=== PATIENT | male | born 1985 | race Caucasian/White ===

== ENCOUNTER 2022-02-05 08:41 | Observation (INO) ==
[2022-02-05] MEDS ORDERED: IOPAMIDOL 100 ML BOTTLE IV ONE (08:42)
[2022-02-05] MEDS ORDERED: 0.9 % SODIUM CHLORIDE 1,000 ML IV ONE ×2 (08:45→08:54)
[2022-02-05 08:53] LABS: POC Calcium, Ionized 1.11 (1.16-1.32); POC Creatinine 1.3 (0.6-1.2); POC Potassium 4.1 (3.3-5.1)
[2022-02-05] MEDS ORDERED: ONDANSETRON 4 MG/2 ML VIAL IV ONE (08:54)
[2022-02-05] MEDS ORDERED: HYDROmorphone 0.5 MG/0.5 ML SYRINGE IV ONE ×3 (08:54→11:41)
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
[2022-02-05 09:39] LABS: Basophils # (Auto) 0.06 K/mcL (0.00-0.30); Basophils % (Auto) 0.4 % (0.0-2.0); Eosinophils # (Auto) 0.04 K/mcL (0.00-0.70); Eosinophils % (Auto) 0.2 % (0.0-7.0); Hematocrit 49.6 % (40.1-51.0); Hemoglobin 16.9 g/dL (13.7-17.5); Lymphocytes # (Auto) 1.56 K/mcL (1.50-4.80); Lymphocytes % (Auto) 9.1 % (15.5-49.0); Mean Cell Volume 92.9 fL (80.0-100.0); Mean Corpuscular HGB Conc 34.1 g/dL (31.0-36.0); Mean Platelet Volume 9.9 fL (8.8-12.5); Monocytes % (Auto) 5.3 % (1.0-12.0); Neutrophils % (Auto) 84.6 % (38.0-78.0); Platelet Count 251 K/mcL (140-440); RBC 5.34 M/mcL (4.63-6.08); Red Cell Distribution Width 11.9 % (11.5-14.5); WBC 17.1 K/mcL (4.5-11.0)
[2022-02-05 09:47] LABS: ALT/SGPT 20 U/L (<40); AST/SGOT 22 U/L (<40); Albumin 5.5 gm/dL (3.2-5.2); Alkaline Phosphatase 68 U/L (39-117); Amylase 53 U/L (28-100); Bilirubin,Direct 0.2 mg/dL (<0.3); Bilirubin,Total 0.8 mg/dL (0.1-1.0); Globulin 2.8 gm/dL (2.2-3.7)
--- NOTE | 2022-02-05 09:55 | XRay Report ---
CLINICAL INFORMATION: Chest pain COMPARISON: 03/25/2018 TECHNIQUE: Portable FINDINGS: The heart size, mediastinum and pulmonary vessels are unremarkable. The lungs are clear. There are no effusions. The bones and soft tissues are within normal limits. IMPRESSION: Normal chest. Interpreted and Authenticated by: Josue Sue 02/05/22
--- NOTE | 2022-02-05 10:11 | Cat Scan Report ---
CLINICAL INFORMATION: Left lower quadrant pain. History of stones COMPARISON: Abdomen and pelvic CT 04/25/2019 TECHNIQUE: Following enteric contrast, 80 cc of Isovue-370 were injected intravenously, and 60 seconds later, 0.625 mm helical slices were obtained from the mid heart through the subtrochanteric regions. Following reconstruction, 2.5 mm sagittal, coronal and axial reformatted images were processed and reviewed at bone, lung and soft tissue windows. Five minutes later, 0.625 mm helical slices were obtained from the mid heart through the kidneys and viewed at soft tissue windows.The exam was performed using radiation dose optimization techniques including, but not limited to, automated exposure control, adjustment of the mA and/or kV according to patient size and use of iterative reconstruction technique. FINDINGS: The lung bases are clear. No effusions. The visualized heart is grossly normal. Abdominal images show mild stable fatty change within the liver. No focal hepatic lesions. The gallbladder and bile ducts, adrenal glands, spleen, pancreas and aorta, including aortic branches, are normal in size, configuration and attenuation without focal lesion. There is no free air, free fluid or adenopathy. Both kidneys are normal and symmetric in size, position, configuration and attenuation: The right is 11.3 cm in length and the left is 11.7 cm in length. There is a 3 mm stone in the distal left ureter, at the UVJ, resulting in moderate left hydroureter/hydronephrosis. A 3 mm nonobstructing stone is seen within an inferior calyx of the right kidney. Pelvic images show normal urinary bladder, prostate and seminal vesicles. The stomach, small bowel, inferior pericecal appendix and large bowel are grossly normal. Bone windows show no osseous abnormality IMPRESSION: 1. 3 mm stone in the distal left ureter resulting in moderate left hydroureter/hydronephrosis. 2. 3 mm nonobstructing stone inferior calyx right kidney. 3. Mild fatty change within the liver that stable Interpreted and Authenticated by: Josue Sue 02/05/22
[2022-02-05] MEDS ORDERED: LEVOFLOXACIN 750 MG/150 ML BAG IV ONE (10:26)
[2022-02-05 11:28] LABS: Appearance,Urine Clear (Clear); Bilirubin,Urine Negative (Negative); Color,Urine Yellow; Culture Indicated,Urine No; Glucose,Urine (UA) Negative (Negative); Ketones,Urine Negative (Negative); Leukocyte Esterase,Urine Negative /uL (Negative); Mucus,Urine MOD /hpf; Nitrate,Urine Negative (Negative); PH,Urine 7.5 (5.0-9.0); Urine Blood Large ery/mcL (Negative); Urine Hyaline Cast 1 /lph (0-2); Urine RBC 146 /hpf (0-3); Urine Squamous Epithelial Cell < 1 /hpf (0-4); Urine WBC 2 /hpf (0-4); Urobilinogen,Urine Normal
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
[2022-02-05] MEDS ORDERED: ONDANSETRON 4 MG/2 ML VIAL IV PRN (12:34)
[2022-02-05] MEDS ORDERED: ACETAMINOPHEN 325 MG TABLET PO PRN (12:34)
[2022-02-05] MEDS ORDERED: KETOROLAC 30 MG/ML VIAL IV PRN (12:34)
[2022-02-05] MEDS ORDERED: PROMETHAZINE 25 MG/ML VIAL IV PRN (12:34)
[2022-02-05] MEDS ORDERED: IPRATROPIUM/ALBUTEROL 3 ML AMPUL.NEB NEB PRN (12:34)
[2022-02-05] MEDS ORDERED: hydrALAZINE 20 MG/ML VIAL IV PRN (12:34)
[2022-02-05] MEDS: 0.9 % SODIUM CHLORIDE 1,000 ML IV SCH ×3 (13:05→23:14)
[2022-02-05] MEDS: HYDROmorphone 0.5 MG/0.5 ML SYRINGE IV PRN ×4 (13:06→20:32)
[2022-02-05] MEDS ORDERED: ACETAMINOPHEN 500 MG TABLET PO PRN (13:24)
[2022-02-05] MEDS ORDERED: HYDROcodone/APAP (PP) 5/325MG TABLET (#4) PO PRN (13:24)
[2022-02-05] MEDS ORDERED: PSEUDOEPHEDRINE 30 MG TABLET PO PRN (13:28)
[2022-02-05] MEDS: 0.9 % SODIUM CHLORIDE 10 ML SYRINGE IV SCH ×2 (15:14→20:54)
[2022-02-05] MEDS: HYDROcodone/APAP 5/325MG TABLET PO PRN ×2 (16:08→21:04)
[2022-02-05] MEDS: DOCUSATE SODIUM 100 MG CAPSULE PO SCH (20:53)
[2022-02-05] MEDS: SENNOSIDES 1 TABLET PO SCH (20:54)
[2022-02-05] MEDS: LOSARTAN 50 MG TABLET PO SCH (20:54)
[2022-02-05] MEDS ORDERED: guaiFENesin/DEXTROMETHORPHAN ORAL SOL PO PRN (21:00)
[2022-02-05] MEDS: traZODone HCL 50 MG TABLET PO PRN (23:16)
[2022-02-06] MEDS: HYDROcodone/APAP 5/325MG TABLET PO PRN ×5 (02:59→20:46)
[2022-02-06] MEDS: 0.9 % SODIUM CHLORIDE 1,000 ML IV SCH ×6 (04:10→19:03)
[2022-02-06] MEDS: 0.9 % SODIUM CHLORIDE 10 ML SYRINGE IV SCH ×2 (06:29→13:39)
[2022-02-06 08:00] LABS: Blood Urea Nitrogen 13 mg/dL (6-20); Carbon Dioxide 20 mmol/L (22-30); Chloride 106 mmol/L (96-108); Glomerular Filtration Rate 108; Glucose 93 mg/dL (70-105)
[2022-02-06] MEDS: DOCUSATE SODIUM 100 MG CAPSULE PO SCH ×2 (08:40→20:46)
[2022-02-06] MEDS: ESCITALOPRAM 10 MG TABLET PO SCH (08:40)
[2022-02-06] MEDS: ENOXAPARIN 40 MG/0.4 ML SYRINGE SQ SCH (08:40)
[2022-02-06 08:42] LABS: Basophils # (Auto) 0.03 K/mcL (0.00-0.30); Basophils % (Auto) 0.6 % (0.0-2.0); Eosinophils # (Auto) 0.04 K/mcL (0.00-0.70); Eosinophils % (Auto) 0.7 % (0.0-7.0); Hematocrit 36.7 % (40.1-51.0); Hemoglobin 12.4 g/dL (13.7-17.5); Lymphocytes # (Auto) 1.85 K/mcL (1.50-4.80); Lymphocytes % (Auto) 34.1 % (15.5-49.0); Mean Cell Volume 93.4 fL (80.0-100.0); Mean Corpuscular HGB Conc 33.8 g/dL (31.0-36.0); Mean Platelet Volume 11.6 fL (8.8-12.5); Monocytes # (Auto) 0.56 K/mcL (0.10-0.90); Monocytes % (Auto) 10.3 % (1.0-12.0); Neutrophils % (Auto) 53.7 % (38.0-78.0); Platelet Count 96 K/mcL (140-440); RBC 3.93 M/mcL (4.63-6.08); Red Cell Distribution Width 11.9 % (11.5-14.5); WBC 5.4 K/mcL (4.5-11.0)
--- NOTE | 2022-02-06 14:14 | Internal Med Progress Note ---
SUBJECTIVE Subjective Patient information: Note initiated : 02/06/22 at 2:12 pm Service Date, if different from initiated Date: [] Patient: Cuong Haas a 36 y/o M admitted on 02/05/22 for severe left lower abd pain. Chief Complaint: [] Interval history: Mr. Haas is a 36 year old M history of bipolar disorder, essential hypertensions, chronic neck pain, presenting with 1 day history of acute onset left lower quadrant abdominal pain associate with nausea. No prior similar episode history. No prior history of kidney stone or ureteral stone. This morning at 5 AM he woke up with 10 out of 10, sharp, intermittent left lower quadrant abdominal pain. Denies back pain. He is also coming off nausea but denies any vomiting. He stated that he has been dehydrated recently. He is to drink a lot of water. Vital signs at ED presentation significant for mild tachycardia heart rate up to the 100s beats per minutes. CBC pending. Chemistry panel showing good kidney functions with GFR greater than 100. UA does not suggest the presence of urinary tract infections. CT of the abdomen pelvis showing 3 mm stone in the distal left ureter resulting in moderate left hydroureter and hydronephrosis. 3 mm nonobstructing stone inferior calyx right kidney. 02/06: Afebrile overnight. No major overnight events. Patient has not passed any ston e. Patient is coming of 3 out of 10 and sharp left lower quadrant abdominal pain intermittent. Denies any back pain. Denies any nausea or vomiting. Continue aggressive IV fluid infusions and narcotics/Toradol as needed for pain management. We will continue to attempt to catch 20 past kidney stones. If patient passed a stone or if continues to clinically improve, consider discharging home tomorrow. Constitutional Vitals: Vital Signs Temp Pulse Resp BP Pulse Ox O2 Del Method 37.1 C 75 14 113/75 99 02/06/22 12:00 02/06/22 12:00 02/06/22 12:00 02/06/22 12:02/06/22 12:02/06/22 12:00 Period Temp Pulse Resp BP Sys/[place] Pulse Ox O2 Del Method O2 Flow Rate Last 24 Hr 36.8 C-37.1 C 65-93 12-16 99-136/68-83 96-99 Room Air-Room Air Intake and Output 0902/06/22 02/06/22 05:59 13:59 21:59 Intake Total 2383 1945 Output Total 450 875 Balance 1933 1071 Weight 77.655 kg Patient Weight 02/07/22 05:59 Weight 77.655 kg Intake & Output: Intake & Output 02/06/22 02/06/22 02/06/22 05:59 13:59 21:59 Intake Total 2383 1945 Output Total 450 875 Balance 1934 1071 Weight 77.655 kg Intake: IV 1943 1945 Sodium Chloride 0.9% 1,000 ml @ 1943 1945 200 mls/hr IV .Q5H [facility] Rx#: [id number] Oral 440 Output: Void Amount 450 875 Other: Urine Appearance Clear Clear Urine Color Yellow Yellow Urine Odor Normal Head Head exam: Present atraumatic and normal inspection Eye Eye exam: Present normal appearance ENT ENT exam: Present mucous membranes moist, normal exam and normal external ear exam Neck Neck exam: Present normal inspection Respiratory Respiratory exam: Present normal respiratory exam Cardiovascular Cardiovascular exam: Present normal rate and rhythm GI/Abdominal GI/Abdominal exam: Present normal bowel sounds and tenderness Back Exam Back exam: Present normal inspection Neurological Exam Neurological exam: Present alert and oriented X3 Skin Skin exam: Present intact and warm OBJ DATA Labs CBC & Chem 7: 02/06/22 06:11 02/06/22 06:11 Labs: Abnormal Lab Results 02/06/22 02/06/22 02/05/22 06:11 06:11 09:01 WBC RBC 3.93 L Hgb 12.4 L Hct 36.7 L Plt Count 96 L Immature Gran % (Auto) 0.6 H Neut % (Auto) Lymph % (Auto) Immature Gran # Absolute Neutrophils Carbon Dioxide 20 L POC Creatinine POC Glucose Calcium 8.0 L POC WB Ioniz Calcium Albumin Urine Protein 30 mg/dl A Urine Occult Blood Large A Urine RBC 146 H Urine Mucus Mod A 02/05/22 02/05/22 02/05/22 08:57 08:54 08:50 WBC 17.1 H RBC Hgb Hct Plt Count Immature Gran % (Auto) Neut % (Auto) 84.6 H Lymph % (Auto) 9.1 L Immature Gran # 0.07 H Absolute Neutrophils 14.44 H Carbon Dioxide POC Creatinine 1.3 H POC Glucose 120 H Calcium POC WB Ioniz Calcium 1.11 L Albumin 5.5 H Urine Protein Urine Occult Blood Urine RBC Urine Mucus Meds: Medications Acetaminophen (Acetaminophen 325 Mg Tablet) 650 mg PO Q6HP PRN; Protocol PRN Reason: Per Pain Protocol/Fever > 101 Hydrocodone Bitart/Acetaminophen (Hydrocodone/Apap 5/325mg Tablet) 0 tab PO Q4HP PRN; Protocol PRN Reason: Per Pain Protocol Last Admin: 02/06/22 09:30 Dose: 2 tab Albuterol/Ipratropium (Ipratropium/Albuterol 3 Ml Ampul.Neb) 3 ml NEB Q4HRT PRN PRN Reason: Wheezing Docusate Sodium (Docusate Sodium 100 Mg Capsule) 100 mg PO BID [facility] Last Admin: 02/06/22 08:40 Dose: 100 mg Enoxaparin Sodium (Enoxaparin 40 Mg/0.4 Ml Syringe) 40 mg SQ DAILY [facility] Last Admin: 02/06/22 08:40 Dose: 40 mg Escitalopram Oxalate (Escitalopram 10 Mg Tablet) 10 mg PO QDAY [facility] Last Admin: 02/06/22 08:40 Dose: 10 mg Guaifenesin (Guaifenesin/Dextromethorphan Oral [place]) 10 ml PO HSP PRN PRN Reason: Cold Symptoms Hydralazine HCl (Hydralazine 20 Mg/Ml Vial) 10 mg IV Q4-6HP PRN PRN Reason: Hypertension Hydromorphone HCl (Hydromorphone 0.5 Mg/0.5 Ml Syringe) 0.5 mg IV Q2HP PRN; Protocol PRN Reason: Per Pain Protocol Last Admin: 02/05/22 20:32 Dose: 0.5 mg Sodium Chloride (Sodium Chloride 0.9%) 1,000 mls @ 200 mls/hr IV .Q5H [facility] Last Admin: 02/06/22 13:54 Dose: 200 mls/hr Ketorolac Tromethamine (Ketorolac 30 Mg/Ml Vial) 30 mg IV Q6HP PRN; Protocol PRN Reason: Per Pain Protocol Stop: 02/07/22 11:32 Last Admin: 02/05/22 13:05 Dose: 30 mg Losartan Potassium (Losartan 50 Mg Tablet) 50 mg PO HS [facility] Last Admin: 02/05/22 20:54 Dose: Not Given Ondansetron HCl (Ondansetron 4 Mg/2 Ml Vial) 4 mg IV Q6HP PRN PRN Reason: Nausea And Vomiting Promethazine HCl (Promethazine 25 Mg/Ml Vial) 12.5 mg IV Q6HP PRN PRN Reason: Nausea And Vomiting Pseudoephedrine HCl (Pseudoephedrine 30 Mg Tablet) 60 mg PO DAILYP PRN PRN Reason: COLD SYMPTOMS Senna (Sennosides 1 Tablet) 2 tab PO HS [facility] Last Admin: 02/05/22 20:54 Dose: Not Given Sodium Chloride (0.9 % Sodium Chloride 10 Ml Syringe) 10 ml IV Q8 [place] Last Admin: 02/06/22 13:39 Dose: Not Given Trazodone HCl (Trazodone Hcl 50 Mg Tablet) 25 mg PO HSP PRN PRN Reason: Insomnia Last Admin: 02/05/22 23:16 Dose: 25 mg A/P Assessment and plan (1) Essential hypertension: Status: Acute (2) Left ureteral stone: Status: Acute (3) Chronic neck and back pain: Status: Chronic (4) Bipolar disorder: Status: Acute Narrative A/P Narrative: Assessment and Plans: 1. Left ureteral stone with left hydroureter/hydronephrosis: With concurrent 3mm non obstructing right kidney stone Mostly likely will pass spontaneously given the size (3mm) Inpatient med surg NS@200cc/hr Tylenol Ketorolac [place] Dilaudid IV Zofran IV Phenergan IV Kidney stone strainer/filter 2. Essential HTN: Currently normotensive Losartan Hydralazine 10mg IV q4-6hr PRN SBP>=180 and/or DBP>=110mmHg 3. Bipolar disorder: Stable Continue antipsychotics GI ppx: not currently indicated DVT ppx: Lovenox Code status: Full Prognosis: stable Disposition: inpatient med surg Time Spent With Patient Time: Total time spent is greater than 50% in coordination of care (as documented) at patient's floor/unit and/or counseling patient: Total time spent with greater than 50% in coordination of care (as documented) at patient's floor/unit and/or counseling patient:: 25 - 35 minutes QUALITY VTE Deep Vein Thrombosis/Pulmonary Embolism Present on Admission: No
[2022-02-06] MEDS: SENNOSIDES 1 TABLET PO SCH (20:45)
[2022-02-06] MEDS: LOSARTAN 50 MG TABLET PO SCH (20:45)
[2022-02-06] MEDS: traZODone HCL 50 MG TABLET PO PRN (20:48)
[2022-02-07] MEDS: 0.9 % SODIUM CHLORIDE 1,000 ML IV SCH ×3 (00:04→09:27)
[2022-02-07] MEDS: 0.9 % SODIUM CHLORIDE 10 ML SYRINGE IV SCH ×2 (00:05→04:52)
[2022-02-07 07:41] LABS: Basophils # (Auto) 0.06 K/mcL (0.00-0.30); Eosinophils # (Auto) 0.06 K/mcL (0.00-0.70); Lymphocytes % (Auto) 33.8 % (15.5-49.0); Mean Corpuscular HGB Conc 34.2 g/dL (31.0-36.0); Mean Platelet Volume 10.2 fL (8.8-12.5); Monocytes # (Auto) 0.62 K/mcL (0.10-0.90); Monocytes % (Auto) 10.5 % (1.0-12.0); Neutrophils % (Auto) 53.5 % (38.0-78.0); Platelet Count 169 K/mcL (140-440); RBC 4.13 M/mcL (4.63-6.08); Red Cell Distribution Width 11.4 % (11.5-14.5); WBC 5.9 K/mcL (4.5-11.0)
[2022-02-07 08:30] LABS: Blood Urea Nitrogen 9 mg/dL (6-20); Calcium 8.4 mg/dL (8.6-10.4); Carbon Dioxide 26 mmol/L (22-30); Chloride 105 mmol/L (96-108); Glomerular Filtration Rate 108; Glucose 87 mg/dL (70-105)
[2022-02-07] MEDS: HYDROcodone/APAP 5/325MG TABLET PO PRN (08:56)
--- NOTE | 2022-02-07 09:04 | Discharge Summary ---
Discharge Provider Provider IMPORTANT FOLLOW-UP INFORMATION FOR PCP: Patient information: Note initiated : 02/07/22 at 9:03 am Service Date, if different from initiated Date: [] Patient: Cuong Haas a 36 y/o M admitted on 02/05/22 for severe left lower abd pain. Chief Complaint: [] Date of admission: 02/05/22 12:33 Discharge date: 02/07/22 Primary care physician: Martita Barlow Attending physician on admission: Michael Lugo Consults: 02/05/22 Consult to Physician [CONS] Stat Comment: Consulting Provider: Michael Lugo Reason For Exam: Physician to Consult Attending physician on discharge: Michael Lugo COURSE Hospital Course Hospital course: Mr. Haas is a 36 year old M history of bipolar disorder, essential hyperten sions, chronic neck pain, presenting with 1 day history of acute onset left lower quadrant abdominal pain associate with nausea. No prior similar episode history. No prior history of kidney stone or ureteral stone. This morning at 5 AM he woke up with 10 out of 10, sharp, intermittent left lower quadrant abdominal pain. Denies back pain. He is also coming off nausea but denies any vomiting. He stated that he has been dehydrated recently. He is to drink a lot of water. Vital signs at ED presentation significant for mild tachycardia heart rate up to the 100s beats per minutes. CBC pending. Chemistry panel showing good kidney functions with GFR greater than 100. UA does not suggest the presence of urinary tract infections. CT of the abdomen pelvis showing 3 mm stone in the distal left ureter resulting in moderate left hydroureter and hydronephrosis. 3 mm nonobstructing stone inferior calyx right kidney. 02/06: Afebrile overnight. No major overnight events. Patient has not passed any stone. Patient is coming of 3 out of 10 and sharp left lower quadrant abdominal pain intermittent. Denies any back pain. Denies any nausea or vomiting. Continue aggressive IV fluid infusions and narcotics/Toradol as needed for pain management. We will continue to attempt to catch 20 past kidney stones. If patient passed a stone or if continues to clinically improve, consider discha rging home tomorrow. 02/07: Still has not passed ureter stone, but symptoms much improved. Discharged home. Discharge diagnosis: Ureter stone Time Spent with Patient Time attestation: Total time spent providing and/or coordinating discharge services: Time spent: Less than 30 minutes EXAM Constitutional Vitals: Temp Pulse Resp BP Pulse Ox O2 Del Method 36.9 C 78 18 119/82 98 02/07/22 07:39 02/07/22 03:43 02/07/22 07:39 02/07/22 07:39 02/07/22 07:39 02/07/22 07:39 General appearance: cooperative and no acute distress Head Head exam: Present atraumatic and normocephalic Eye Eye exam: Present EOMI and PERRL ENT ENT exam: Present mucous membranes moist, normal exam and normal external ear exam Neck Neck exam: Present normal inspection; Absent lymphadenopathy, tenderness or thyromegaly Respiratory Respiratory exam: Absent accessory muscle use, respiratory distress or wheezes Cardiovascular Cardiovascular exam: Present normal rate and rhythm; Absent JVD GI/Abdominal GI/Abdominal exam: Present normal bowel sounds and soft; Absent organomegaly or tenderness Rectal Rectal exam: Present deferred Extremities Exam Extremities exam: Present full ROM, normal capillary refill and normal inspection; Absent tenderness Neurological Exam Neurological exam: Present alert, CN II-XII intact and oriented X3; Absent motor sensory deficit Psychiatric Psychiatric exam: Present normal affect and normal mood; Absent anxious or depressed Skin Skin exam: Present dry and intact Discharge Data Data Completed and Pending Labs on day of discharge: Labs from last 24 hours 02/07/22 02/07/22 05:53 05:53 WBC 5.9 RBC 4.13 L Hgb 13.0 L Hct 38.0 L MCV 92.0 MCH 31.5 MCHC 34.2 RDW 11.4 L Plt Count 169 MPV 10.2 Immature Gran % (Auto) 0.2 Neut % (Auto) 53.5 Lymph % (Auto) 33.8 [place] % (Auto) 10.5 Eos % (Auto) 1.0 Baso % (Auto) 1.0 Lymph # (Auto) 2.00 [place] # (Auto) 0.62 Eos # (Auto) 0.06 Baso # (Auto) 0.06 Immature Gran # 0.01 Absolute Neutrophils 3.17 Sodium 139 Potassium 3.5 Chloride 105 Carbon Dioxide 26 Anion Gap 8.0 BUN 9 Creatinine 0.9 GFR Calculation 108 Glucose 87 Calcium 8.4 L Preliminary micro results at discharge 02/05/22 11:31 Blood Culture - Preliminary Blood 02/05/22 11:20 Blood Culture - Preliminary Blood Discharge Plan Patient/Caregiver Discharge Instructions Activity: increase activity as tolerated Diet: Regular Diet Prescriptions: New ondansetron 4 mg tablet,disintegrating 4 mg PO Q8H PRN (Reason: nausea and vomiting) Qty: 20 0RF Continued dextromethorphan-guaifenesin 10-100 mg/5 mL Syrup 10 ml PO HSP PRN (Reason: Cold Symptoms) acetaminophen 500 mg Tablet 1,000 mg PO Q6HP PRN (Reason: Pain) pseudoephedrine HCl [Sudafed] 30 mg Tablet 60 mg PO DAILYP PRN (Reason: Cold Symptoms) losartan 100 mg tablet 100 mg PO HS aripiprazole 10 mg tablet 10 mg PO QDAY hydrocodone-acetaminophen 5-325 mg Tablet 1 - 2 tab PO Q4HP PRN (Reason: Pain) Qty: 20 0RF Follow Up Plan Follow up with: PCP, PCP [Other] Martita Barlow [Primary Care Provider] - Patient Disposition: Home, Self-Care Prognosis: Fair Rehab Potential: Good I certify that the patient requires SNF services: No Overall status at discharge: patient is progressing back to baseline Discharge Orders: Discharge Order (Routine); Ordered 02/07/22 Ordered By: Michael ESPARZA VTE Deep Vein Thrombosis/Pulmonary Embolism Present on Admission: No
[2022-02-07] MEDS: DOCUSATE SODIUM 100 MG CAPSULE PO SCH (09:26)
[2022-02-07] MEDS: ENOXAPARIN 40 MG/0.4 ML SYRINGE SQ SCH (09:26)
[2022-02-07] MEDS: ESCITALOPRAM 10 MG TABLET PO SCH (09:26)
== END 2022-02-07 10:35 | disposition home or self-care (01) ==
LOC: ED 08:41 → INTOOBSV 12:33 → MEDSUR 12:33
PROVIDERS: ADMIT Internal Medicine; ATTEND Internal Medicine